=== PATIENT | male | born 1965 | race Caucasian/White ===

== ENCOUNTER 2018-01-02 20:16 | Outpatient (CLI) | END 2018-01-02 20:48 | disposition short-term general hospital (02) | LOC: AMBL 20:16 | PROVIDERS: ATTEND Family Medicine | DX: S69.92XA Unspecified injury of left wrist, hand and finger(s), initial encounter (principal); T14.90XA Injury, unspecified, initial encounter; M54.2 Cervicalgia; V89.2XXA Person injured in unspecified motor-vehicle accident, traffic, initial encounter ==